=== PATIENT | female | born 1990 | race Caucasian/White ===

== ENCOUNTER 2017-01-02 11:56 | Emergency (ER) | payer BC ==
[2017-01-02] MEDS ORDERED: Oxycodone/Acetaminophen 5/325 mg Tab PO STA (12:28)
[2017-01-02] MEDS ORDERED: Oxycodone/Acetaminophen 5/325 mg Tab ONE (13:03)
--- NOTE | 2017-01-02 13:06 | C.PDOC ---
History Of Present Illness 26 y/o female presents to the emergency department for evaluation of right flank pain which began yesterday. Patient states she was evaluated at [facility] yesterday where she underwent a CT and was found to have a 2mm right urethral stone. Patient was also found to have a UTI and was prescribed antibiotics and Naproxen for pain. Patient was also given Flomax. She states she still has pain and reports to the emergency department for further evaluation. She denies fever, chills, nausea, vomiting. Time Seen by Provider: 01/02/17 12:21 Chief Complaint (Nursing): Female Genitourinary History Per: Patient History/Exam Limitations: no limitations Onset/Duration Of Symptoms: Days Current Symptoms Are (Timing): Still Present Quality Of Discomfort: "Pain" Associated Symptoms: denies: Incontinence, New Weakness, New Numbness Additional History Per: Patient Past Medical History Reviewed: Historical Data, Nursing Documentation, Vital Signs Vital Signs: Last Vital Signs Temp 97.9 F 01/02/17 14:52 Pulse 90 01/02/17 14:52 Resp 18 01/02/17 14:52 BP 135/87 01/02/17 14:52 Pulse Ox 100 01/02/17 14:56 - Medical History PMH: Kidney Stones Surgical History: No Surg Hx Family History: States: Unknown Family Hx - Social History Hx Alcohol Use: Yes Hx Substance Use: No - Immunization History Hx Tetanus Toxoid Vaccination: No Hx Influenza Vaccination: No Hx Pneumococcal Vaccination: No Review Of Systems Constitutional: Negative for: Fever, Chills Gastrointestinal: Negative for: Nausea, Vomiting Musculoskeletal: Positive for: Other (+right flank pain ) Physical Exam - Physical Exam Appears: Non-toxic, No Acute Distress Skin: Normal Color, Warm, Dry Head: Atraumatic Eye(s): bilateral: Normal Inspection Oral Mucosa: Moist Neck: Supple Chest: Symmetrical, No Deformity, No Tenderness Cardiovascular: Rhythm Regular, No Murmur Respiratory: Normal Breath Sounds, No Rales, No Rhonchi, No Wheezing Gastrointestinal/Abdominal: Soft, No Tenderness, No Guarding, No Rebound Back: CVA Tenderness (right-sided), No Vertebral Tenderness, No Paraspinal Tenderness Extremity: Normal ROM, Capillary Refill (less than 2 seconds ) Neurological/Psych: Normal Speech, Normal Cognition Gait: Steady ED Course And Treatment - Laboratory Results Result Diagrams: 01/02/17 14:00 07/29/17 14:00 O2 Sat by Pulse Oximetry: 100 (on RA) Pulse Ox Interpretation: Normal Progress Note: Patient received Percocoet PO. Disposition Counseled Patient/Family Regarding: Studies Performed, Diagnosis, Need For Followup, Rx Given - Disposition Disposition: HOME/ ROUTINE Disposition Time: 15:00 Condition: IMPROVED Additional Instructions: Follow up with your PMD and urologist for further evaluation Prescriptions: oxyCODONE/Acetaminophen [Percocet 5/325 mg Tab] 1 tab PO QID PRN #10 tab PRN Reason: Pain Instructions: Renal Colic (ED) Forms: [employer] (Mexican) - POA Present On Arrival: None - Clinical Impression Clinical Impression: Renal colic, UTI (urinary tract infection) - PA / PORTFOLIO LEAD / Resident Statement MD/DO has reviewed & agrees with the documentation as recorded. - Scribe Statement The provider has reviewed the documentation as recorded by the Scribe (Thuy Flores) All medical record entries made by the Scribe were at my direction and personally dictated by me. I have reviewed the chart and agree that the record accurately reflects my personal performance of the history, physical exam, medical decision making, and the department course for this patient. I have also personally directed, reviewed, and agree with the discharge instructions and disposition.
[2017-01-02 13:15] VITALS: RESP 18
[2017-01-02] MEDS ORDERED: Sodium Chloride 0.9% 1,000 ML IV ONE (13:38)
[2017-01-02 14:03] LABS: BASO % 0.2 % (0.0-2.0); EOS % 0.1 % (0.0-4.0); HEMATOCRIT 40.1 % (34.0-47.0); LYMPH # 0.7 K/uL (1.0-4.3); LYMPH % 5.3 % (20.0-40.0); MEAN CORPUSCULAR HEMOGLOBIN 28.6 pg (27.0-31.0); MEAN CORPUSCULAR HGB CONC 33.7 g/dL (33.0-37.0); MEAN PLATELET VOLUME 9.9 fL (7.2-11.7); MONO # 0.6 K/uL (0.0-0.8); MONO % 4.5 % (0.0-10.0); PLATELET COUNT 218 K/uL (130-400)
[2017-01-02] MEDS ORDERED: Sodium Chloride 0.9% 1,000 ML ONE (14:03)
[2017-01-02] MEDS ORDERED: Morphine 4 MG/ML VIAL ONE (14:03)
[2017-01-02 14:13] LABS: CHLORIDE 102 mmol/L (98-107); SODIUM 139 mmol/L (132-148)
[2017-01-02 14:14] LABS: POTASSIUM 4.2 mmol/L (3.6-5.2)
[2017-01-02 14:15] LABS: RBC URINE 3 /hpf (0-3); URINE BACTERIA RARE (<OCC); URINE BILIRUBIN NEGATIVE (NEGATIVE); URINE BLOOD 2+ (NEGATIVE); URINE COLOR Yellow (YELLOW); URINE GLUCOSE (UA) NORMAL (Normal); URINE KETONE 1+ mg/dL (NEGATIVE); URINE LEUKOCYTE ESTERASE 2+ Leu/uL (Negative); URINE PROTEIN NEGATIVE (NEGATIVE); URINE UROBILINOGEN NORMAL mg/dL (0.2-1.0)
[2017-01-02 14:16] LABS: BLOOD UREA NITROGEN 10 mg/dL (7-17); CARBON DIOXIDE 21 mmol/L (22-30); GFR AFRICAN-AMERICAN > 60
[2017-01-02 14:17] LABS: CALCIUM 8.9 mg/dl (8.6-10.4); GLUCOSE,RANDOM 108 mg/dL (65-105)
[2017-01-02 14:17] LABS: WBC URINE 13 /hpf (0-5)
[2017-01-02 14:42] LABS: NEUTROPHIL 88 % (50-75); TOTAL CELLS COUNTED 100
[2017-01-02 14:53] VITALS: BP 135/87; PULSE 90; TEMP 97.9
[2017-01-02 14:56] VITALS: O2SAT 100
== END 2017-01-02 14:59 | disposition home or self-care (01) ==
LOC: C.ER 11:56
DX: N23 Unspecified renal colic (principal); N39.0 Urinary tract infection, site not specified
CPT/HCPCS: 80048; 81001; 85025; 96361; 96374; 99285; J2405; J7040

== ENCOUNTER 2017-10-28 08:23 | Emergency (ER) | payer BC, OTHER ==
[2017-10-28] MEDS ORDERED: Sodium Chloride 0.9% 1,000 ML IV ONE (09:05)
--- NOTE | 2017-10-28 09:22 | C.PDOC ---
History Of Present Illness 27 y/o female brought in by ambulance noting I have kidney stones. Patient complains of left-sided back pain since 3AM associated with nausea and vomiting. She denies any fever, dysuria, or urinary frequency. Did not take any medications prior to arrival. Time Seen by Provider: 10/28/17 09:01 Chief Complaint (Nursing): Back Pain History Per: Patient History/Exam Limitations: no limitations Onset/Duration Of Symptoms: Hrs (x6) Current Symptoms Are (Timing): Still Present Past Medical History Reviewed: Historical Data, Nursing Documentation, Vital Signs Vital Signs: Last Vital Signs Temp 98.3 F 10/28/17 12:20 Pulse 89 10/28/17 12:20 Resp 18 10/28/17 12:20 BP 120/75 10/28/17 12:20 Pulse Ox 99 10/28/17 12:54 - Medical History PMH: Kidney Stones Surgical History: No Surg Hx Family History: States: No Known Family Hx - Social History Hx Tobacco Use: No Hx Alcohol Use: Yes Hx Substance Use: No - Immunization History Hx Tetanus Toxoid Vaccination: No Hx Influenza Vaccination: No Hx Pneumococcal Vaccination: No Review Of Systems Except As Marked, All Systems Reviewed And Found Negative. Constitutional: Negative for: Fever Gastrointestinal: Positive for: Nausea, Vomiting Genitourinary: Negative for: Dysuria, Frequency Musculoskeletal: Positive for: Back Pain (left-sided) Physical Exam - Physical Exam Appears: Well, Non-toxic, No Acute Distress Skin: Normal Color, Warm, Dry Head: Atraumatic, Normacephalic Eye(s): bilateral: Normal Inspection, EOMI Nose: Normal Oral Mucosa: Moist Neck: Normal ROM, Supple Chest: Symmetrical Cardiovascular: Rhythm Regular Respiratory: Normal Breath Sounds, No Accessory Muscle Use, Other (speaking in full sentences) Gastrointestinal/Abdominal: Soft, No Tenderness, No Distention Back: CVA Tenderness (Left-sided), No Vertebral Tenderness Extremity: Normal ROM Extremity: Bilateral: Atraumatic, No Pedal Edema, Normal Color And Temperature Neurological/Psych: Oriented x3, Normal Speech, Other (No focal deficits) ED Course And Treatment - Laboratory Results Result Diagrams: 10/28/17 09:23 10/28/17 09:23 O2 Sat by Pulse Oximetry: 99 (RA) Pulse Ox Interpretation: Normal - CT Scan/US CT abd/pel Other Rad Studies (CT/US): Read By Radiologist, Radiology Report Reviewed CT/US Interpretation: Accession No. : [id number]. Patient Name / ID : BETTY MURILLO / [id number]. Exam Date : 10/28/2017 11:36:07 ( Approved ). Study Comment : Sex / Age : F / 27Y. Creator : Yoselin Daniels. Dictator : Cj Doyle MD. Retail Visual Merchandiser : Mixer Driver : Cj Doyle MD. Approver2 : Report Date : 10/28/2017 11:50:26. My Comment : . PROCEDURE: CT Abdomen and Pelvis without intravenous contrast. HISTORY: Pain. COMPARISON: None. TECHNIQUE: Helical CT of the abdomen and pelvis was performed without oral or intravenous contrast as per referring physician request. Contrast dose: None. Radiation dose: Total exam DLP = 383.86 mGy- cm. This CT exam was performed using one or more of the following dose reduction techniques: Automated exposure control, adjustment of the mA and/or kV according to patient size, and/or use of iterative reconstruction technique. FINDINGS: LOWER THORAX: Unremarkable. LIVER: Unremarkable. No gross lesion or ductal dilatation. GALLBLADDER AND BILE DUCTS: Unremarkable. PANCREAS: Unremarkable. No gross lesion or ductal dilatation. SPLEEN: Unremarkable. ADRENALS: Unremarkable. No mass. KIDNEYS AND URETERS: Unremarkable. No hydronephrosis. No solid massA 3 mm calculus obstructs the left ureteropelvic junction resulting in a borderline left hydronephrosis with mild left perinephric reaction present. Three punctate calculi are scattered within the caliceal systems of the left kidney with approximately 4 at the right with these smaller bilateral calculi nonobstructive. No right perinephric reaction or obstructive uropathy appreciated. Urinary bladder is unremarkable appearing. VASCULATURE: Unremarkable. No aortic aneurysm. BOWEL: Unremarkable. No obstruction. No gross mural thickening. APPENDIX: Unremarkable. Normal appendix. PERITONEUM: Unremarkable. No free fluid. No free air. LYMPH NODES: Unremarkable. No enlarged lymph nodes. BLADDER: Unremarkable. REPRODUCTIVE: Unremarkable. BONES: No acute fracture. OTHER FINDINGS: None. IMPRESSION: A 3 mm calculus obstructs the left ureteropelvic junction causing borderline left hydronephrosis as discussed above. None is seen the right. Nonobstructing punctate intrarenal calculi are scattered at the Sandie seal anatomy of the bilateral kidneys as discussed above. Progress Note: Initiated work-up including blood work, urine, and CT Abdomen/ Pelvis. Patient given IV fluids, 30mg Toradol IV, and Zofran ODT. On re- evlauation, pt is sleeping. Upon awakening, she notes she feels better. Tolerating PO. Remains afebrile. Pt was given CT results and instructed to followup with urology in 1-2 days. Instructed to return to ER if symptoms persist or worsen. Case discussed with Dr Tinajero, agreed upon plan and treatment. Disposition - Disposition Referrals: Judah Skinner Jr., MD [Staff Provider] - Disposition: HOME/ ROUTINE Disposition Time: 12:27 Condition: STABLE Additional Instructions: Strain your urine. Follow up with your urology in 2-5 days for further evaluation. Take medications as prescribed. Return to the emergency department at any time if symptoms persist or worsen. Prescriptions: Naproxen [Naprosyn] 1 tab PO BID PRN #20 tab PRN Reason: Pain Tamsulosin [Flomax] 0.4 mg PO DAILY #10 cap traMADol [Ultram] 50 mg PO Q8 #20 tab Instructions: Renal Colic (DC) Forms: [employer] ([place] Islander) - Clinical Impression Clinical Impression: Renal colic - PA / PICKER MACHINE OPERATOR / Resident Statement MD/DO has reviewed & agrees with the documentation as recorded. - Scribe Statement The provider has reviewed the documentation as recorded by the Scribe (Regina Sears) All medical record entries made by the Scribe were at my direction and personally dictated by me. I have reviewed the chart and agree that the record accurately reflects my personal performance of the history, physical exam, medical decision making, and the department course for this patient. I have also personally directed, reviewed, and agree with the discharge instructions and disposition.
[2017-10-28] MEDS ORDERED: Sodium Chloride 0.9% 1,000 ML ONE (09:26)
[2017-10-28 09:34] LABS: BASO % 0.2 % (0.0-2.0); EOS % 0.1 % (0.0-4.0); HEMOGLOBIN 13.1 g/dL (11.0-16.0); LYMPH % 11.7 % (20.0-40.0); MEAN CELL VOLUME 83.5 fL (81.0-99.0); MEAN CORPUSCULAR HEMOGLOBIN 28.8 pg (27.0-31.0); MEAN CORPUSCULAR HGB CONC 34.5 g/dL (33.0-37.0); MEAN PLATELET VOLUME 10.1 fL (7.2-11.7); MONO # 0.4 K/uL (0.0-0.8); MONO % 4.5 % (0.0-10.0); NEUT # 7.5 K/uL (1.8-7.0); NEUT % 83.5 % (50.0-75.0); RBC 4.53 Mil/uL (3.80-5.20); RED CELL DISTRIBUTION WIDTH 12.8 % (11.5-14.5); WHITE BLOOD COUNT 8.9 K/uL (4.8-10.8)
[2017-10-28 09:38] LABS: HCG,QUALITATIVE URINE NEGATIVE (NEGATIVE)
[2017-10-28 09:43] LABS: SQUAMOUS EPITHIAL 2 /hpf (0-5); URINE BILIRUBIN NEGATIVE (NEGATIVE); URINE BLOOD 3+ (NEGATIVE); URINE CLARITY Hazy (Clear); URINE COLOR Yellow (YELLOW); URINE GLUCOSE (UA) NORMAL (Normal); URINE LEUKOCYTE ESTERASE NEG Leu/uL (Negative); URINE PROTEIN NEGATIVE (NEGATIVE); URINE UROBILINOGEN NORMAL mg/dL (0.2-1.0)
[2017-10-28 09:46] LABS: ALB/GLOB RATIO 1.1 (1.0-2.1); ALBUMIN 4.2 g/dL (3.5-5.0); ALT/SGPT 51 U/L (9-52); AST/SGOT 35 U/L (14-36); BLOOD UREA NITROGEN 7 mg/dL (7-17); CALCIUM 9.6 mg/dl (8.6-10.4); GFR AFRICAN-AMERICAN > 60; GFR NON-AFRICAN AMERICAN > 60
[2017-10-28 12:21] VITALS: BP 120/75; PULSE 89; RESP 18; TEMP 98.3
--- NOTE | 2017-10-28 12:22 | CT ---
PROCEDURE: CT Abdomen and Pelvis without intravenous contrast HISTORY: Pain COMPARISON: None. TECHNIQUE: Helical CT of the abdomen and pelvis was performed without oral or intravenous contrast as per referring physician request. Contrast dose: None Radiation dose: Total exam DLP = 383.86 mGy-cm. This CT exam was performed using one or more of the following dose reduction techniques: Automated exposure control, adjustment of the mA and/or kV according to patient size, and/or use of iterative reconstruction technique. FINDINGS: LOWER THORAX: Unremarkable. LIVER: Unremarkable. No gross lesion or ductal dilatation. GALLBLADDER AND BILE DUCTS: Unremarkable. PANCREAS: Unremarkable. No gross lesion or ductal dilatation. SPLEEN: Unremarkable. ADRENALS: Unremarkable. No mass. KIDNEYS AND URETERS: Unremarkable. No hydronephrosis. No solid massA 3 mm calculus obstructs the left ureteropelvic junction resulting in a borderline left hydronephrosis with mild left perinephric reaction present. Three punctate calculi are scattered within the caliceal systems of the left kidney with approximately 4 at the right with these smaller bilateral calculi nonobstructive. No right perinephric reaction or obstructive uropathy appreciated. Urinary bladder is unremarkable appearing. VASCULATURE: Unremarkable. No aortic aneurysm. BOWEL: Unremarkable. No obstruction. No gross mural thickening. APPENDIX: Unremarkable. Normal appendix. PERITONEUM: Unremarkable. No free fluid. No free air. LYMPH NODES: Unremarkable. No enlarged lymph nodes. BLADDER: Unremarkable. REPRODUCTIVE: Unremarkable. BONES: No acute fracture. OTHER FINDINGS: None. IMPRESSION: A 3 mm calculus obstructs the left ureteropelvic junction causing borderline left hydronephrosis as discussed above. None is seen the right. Nonobstructing punctate intrarenal calculi are scattered at the Sandie seal anatomy of the bilateral kidneys as discussed above.
[2017-10-28 12:29] VITALS: O2SAT 99
== END 2017-10-28 12:47 | disposition home or self-care (01) ==
LOC: C.ER 08:23
DX: N23 Unspecified renal colic (principal)
CPT/HCPCS: 74176; 80053; 81001; 84703; 85025; 96361; 96374; 99284; J1885; J7040